=== PATIENT | female | born 1995 | race Hispanic/Latino ===

== ENCOUNTER 2024-10-30 08:11 | Day surgery (SDC) | payer OTHER ==
[2024-10-30] MEDS ORDERED: Acetaminophen 500 MG TAB ONE (08:25)
[2024-10-30] MEDS: Acetaminophen 500 MG TAB PO SCH (08:38)
[2024-10-30] MEDS: Iron Sucrose Complex 500 MG in Sodium Chloride 0.9% 250 ML 250 ML IVPB SCH (09:35)
[2024-10-30 15:28] VITALS: BP 90/55; TEMP 98
== END 2024-10-30 15:30 | disposition home or self-care (01) ==
LOC: ONC/OP 08:11
PROVIDERS: ATTEND Family Medicine
DX: O99.019 Anemia complicating pregnancy, unspecified trimester (principal); Z3A.00 Weeks of gestation of pregnancy not specified
CPT/HCPCS: 96365; 96366; J1756; J7050